=== PATIENT | male | born 1960 | race Caucasian/White ===

== ENCOUNTER 2019-10-01 10:55 | Emergency (ER) | payer OTHER ==
[~2019-10-01] VITALS: Ht 182.9 cm; Wt 105.5 kg
--- NOTE | 2019-10-01 11:03 | NUR ---
TASK RN: [facility] FROM HOME. SUDDEN ONSET OF DIAPHORETIC, DIZZY, INCREASED HR +SYNCOPAL. CALLED EMS. ON ARRIVAL BP 72/51 HR = 120 FSBS = 79 PIV WAS ESTAB AND 205NS GIVEN WITH EFFECT REPEAT BP 122/66 HR 84. PT NOW PRESENT A&O. ER THOM WILSON AT BEDSIDE. PT DESCRIBES THAT HE FELT HR INCREASE AND DIAPHORESIS, DIZZY YESTERDAY WELL BUT TODAY SYMPTOMS WORSE. DESCRIBES "I FEEL A LITTLE LIKE I CAN'T TAKE A DEEP BREATH" ALL MONITORS PLACED, CALL LIGHT W/I REACH. NAD NOTED
[2019-10-01] MEDS ORDERED: DIAZ10TA4 PO (11:20)
[2019-10-01] MEDS ORDERED: DIURETIC PO (11:21)
--- NOTE | 2019-10-01 11:22 | NUR ---
PT RA SAT 88%, 2L NC PLACED WITH EFFECT
[2019-10-01] MEDS ORDERED: SODIUM CHLORIDE FLUSH 10ML SYR IVF ONE (11:30)
[2019-10-01] MEDS ORDERED: SODIUM CHLORIDE 0.9% 1,000ML IVBOLUS ONE (11:30)
[2019-10-01 11:58] LABS: ALBUMIN 3.5 g/dL (3.4-5.0); ANION GAP 8 mmol/L (5-15); CALCIUM 8.3 mg/dL (8.5-10.1); CHLORIDE 108 mmol/L (98-107)
[2019-10-01 12:02] LABS: ALANINE AMINOTRANSFERASE 23 U/L (12-78); ALKALINE PHOSPHATASE 53 U/L (45-117); BILIRUBIN,TOTAL 0.5 mg/dL (0.2-1.0); CREATININE 1.44 mg/dL (0.7-1.3); TOTAL PROTEIN 7.3 g/dL (6.4-8.2)
[2019-10-01 13:05] LABS: BASOPHILS # (AUTO) 0.03 x10^3/uL (0-0.1); BASOPHILS % (AUTO) 0 % (0-1); EOSINOPHILS # (AUTO) 0.03 x10^3/uL (0-0.4); EOSINOPHILS % (AUTO) 0 % (1-7); LYMPHOCYTES # (AUTO) 1.08 x10^3/uL (1-3.4); LYMPHOCYTES % (AUTO) 8 % (22-44); MD NO; MEAN CORPUSCULAR HEMOGLOBIN 31.8 pg (27.5-34.5); MEAN CORPUSCULAR HGB CONC 33.4 g/dL (33.2-36.2); MEAN PLATELET VOLUME 8.5 fL (7.4-10.4); MONOCYTES # (AUTO) 1.03 x10^3/uL (0.2-0.8); MONOCYTES % (AUTO) 7 % (2-9); NEUTROPHILS # (AUTO) 11.71 x10^3/uL (1.8-6.8); NEUTROPHILS % (AUTO) 84 % (42-75); PLATELET COUNT 188 x10^3/uL (130-400); RED CELL DISTRIBUTION WIDTH 13.3 % (9.4-14.8)
--- NOTE | 2019-10-01 13:27 | NUR ---
ALL TESTS RESULTED. PT IS UP FOR RECHECK AT THIS TIME.
[2019-10-01 14:17] VITALS: BP 123/79
--- NOTE | 2019-10-01 14:39 | NUR ---
AT BEDSIDE FOR RECHECK.
== END 2019-10-01 15:05 | disposition home or self-care (01) ==
LOC: ED 12:16
DX: R55 Syncope and collapse (principal); R42 Dizziness and giddiness; R11.0 Nausea; M10.9 Gout, unspecified; R94.31 Abnormal electrocardiogram [ECG] [EKG]
CPT/HCPCS: 36415; 71045; 80053; 85025; 93005; 96360; 99285; J7030